=== PATIENT | female | born 1955 | race Caucasian/White ===

== ENCOUNTER 2021-03-14 12:35 | Outpatient (REF) | payer MEDICARE, SELFPAY ==
[2021-03-14 13:44] LABS: MANUAL DIFF FLAG NO
[2021-03-14 13:50] LABS: Basophils Percent Auto 0.4 % (0-2); Eosinophils Absolute Auto 0.1 X10*3/uL (0.0-0.4); Eosinophils Percent Auto 3.8 % (0-4); Hematocrit 27.9 % (37-47); Hemoglobin 8.7 g/dl (12.0-16.0); Imm Gran Abs Auto 0.01 X10*3/uL (0.00-0.03); Imm Gran Pct Auto 0.4 % (0.0-0.4); Lymphocytes Absolute Auto 0.7 X10*3/uL (1.2-4.9); Lymphocytes Percent Auto 25.7 % (20-40); Mean Corpuscular HGB Conc 31.2 g/dl (31.0-35.0); Mean Corpuscular Hemoglobin 29.1 pg (27.0-33.0); Mean Corpuscular Volume 93.3 fL (80-98); Monocytes Absolute Auto 0.1 X10*3/uL (0.1-1.2); Monocytes Percent Auto 4.9 % (2-11); Neutrophils Absolute Auto 1.7 X10*3/uL (2.0-8.3); Neutrophils Percent Auto 64.8 % (45-73); Platelet Count 75 X10*3/uL (160-400); Red Blood Count 2.99 X10*6/uL (4.20-5.50); Red Cell Distribution Width 14.8 % (11.0-16.0); White Blood Count 2.7 X10*3/uL (4.8-10.8)
== END 2021-03-14 12:36 | disposition home or self-care (01) ==
LOC: HO.LNP 12:35
PROVIDERS: Visit Provider Internal Medicine
DX: D64.9 Anemia, unspecified (principal)
CPT/HCPCS: 85025